=== PATIENT | male | born 1950 | race African-American/Black ===

== ENCOUNTER 2017-04-20 11:11 | Inpatient (IN) | payer MEDICARE, MEDICAID ==
[~2017-04-20] VITALS: Ht 175.3 cm; Wt 62.1 kg
[~2017-04-20 11:11] MED LIST: ACET-3161 PO; CLON0.3T4 PO; LABE300T PO; MINO2.5T19 PO; OMEP40CA PO
[2017-04-20 14:24] LABS: HEMATOCRIT. 23.4 % (42.0-52.0); HEMOGLOBIN. 7.4 g/dL (14.0-18.0); MEAN CORPUSCULAR HEMOGLOBIN 30.7 pg (28.0-32.0); MEAN CORPUSCULAR VOLUME 97.3 fL (80.0-94.0); MEAN PLATELET VOLUME 7.7 fl (7.4-10.4); PLATELET 90 x1000/uL (130-400); RED CELL DISTRIBUTION WIDTH 16.2 % (11.6-14.6)
[2017-04-20 14:39] LABS: CARBON DIOXIDE 27 mEq/L (21-32); CHLORIDE 106 mEq/L (98-107)
[2017-04-20 15:32] LABS: PLATELET ESTIMATE DECREASED
[2017-04-20] MEDS ORDERED: IPRATROPIUM/ALBUTEROL 0.5-3(2.5)MG/3ML NEB INH PRN (16:15)
[2017-04-20] MEDS ORDERED: CLONIDINE 0.1MG TABLET PO PRN (16:15)
[2017-04-20] MEDS ORDERED: ACETAMINOPHEN 325MG TABLET PO PRN (16:15)
[2017-04-20] MEDS ORDERED: ONDANSETRON HCL 4MG/2ML VIAL IV PRN (16:15)
[2017-04-20] MEDS ORDERED: DOCUSATE SODIUM 100MG CAPSULE PO PRN (16:15)
[2017-04-20 20:32] LABS: HEPATITIS B SURFACE AB 102.3 mIU/mL
[2017-04-20 20:43] LABS: HEPATITIS B SURFACE ANTIGEN NEGATIVE
[2017-04-20 21:12] LABS: HEPATITIS B CORE AB IGM NEGATIVE
[2017-04-21] VITALS (9 sets, daily range): BP systolic 134–163; BP diastolic 70–83
[2017-04-21] MEDS ORDERED: VANCOMYCIN 1 G PREMIX 200 ML IV SCH (01:00)
[2017-04-21] MEDS ORDERED: ZOLPIDEM TARTRATE 5MG TABLET PO PRN (01:09)
[2017-04-21] MEDS: LABETALOL HCL 300MG TABLET PO SCH ×3 (01:11→21:00)
[2017-04-21] MEDS ORDERED: IBUP-2030 PO (01:59)
[2017-04-21] MEDS ORDERED: LABE200T28 PO (01:59)
[2017-04-21] MEDS ORDERED: CLON0.2T PO (02:01)
[2017-04-21] MEDS: MINOXIDIL 2.5MG TABLET PO SCH ×3 (02:13→21:00)
[2017-04-21] MEDS: CLONIDINE 0.3MG TABLET PO SCH ×3 (02:13→21:00)
[2017-04-21 07:28] LABS: HEMATOCRIT. 24.2 % (42.0-52.0); HEMOGLOBIN. 7.8 g/dL (14.0-18.0); MEAN CORPUSCULAR HEMOGLOBIN 31.7 pg (28.0-32.0); MEAN PLATELET VOLUME 8.6 fl (7.4-10.4); PLATELET 91 x1000/uL (130-400); RED BLOOD CELL COUNT 2.47 mill/uL (4.7-6.1); RED CELL DISTRIBUTION WIDTH 16.1 % (11.6-14.6)
[2017-04-21 08:00] LABS: PHOSPHORUS 6.6 mg/dL (2.5-4.9)
[2017-04-21] MEDS: OMEPRAZOLE 20MG CAPSULE EXTENDED RELEASE PO SCH (09:10)
[2017-04-21] MEDS: FERROUS SULFATE 325MG TABLET PO SCH ×4 (13:10→18:44)
[2017-04-21] MEDS: AMLODIPINE 5MG TABLET PO SCH ×2 (13:45→21:00)
[2017-04-21] MEDS ORDERED: VANCOMYCIN 500 MG PREMIX 100 ML IV NR (15:00)
[2017-04-21 16:14] LABS: PLATELET ESTIMATE DECREASED
[2017-04-21] MEDS ORDERED: EPOETIN ALFA 10000UNITS/ML VIAL SUBCUT NR (21:00)
[2017-04-21] MEDS: SEVELAMER CARBONATE 800 MG TABLET PO SCH ×2 (21:22→21:28)
[2017-04-22] VITALS: BP 144/80
[2017-04-22 04:00] VITALS: BP 158/78
[2017-04-22 07:17] LABS: HEMATOCRIT. 26.9 % (42.0-52.0); HEMOGLOBIN. 8.9 g/dL (14.0-18.0); MEAN CORPUSCULAR HEMOGLOBIN 31.5 pg (28.0-32.0); MEAN CORPUSCULAR VOLUME 94.9 fL (80.0-94.0); MEAN PLATELET VOLUME 8.7 fl (7.4-10.4); PLATELET 90 x1000/uL (130-400); RED BLOOD CELL COUNT 2.83 mill/uL (4.7-6.1); RED CELL DISTRIBUTION WIDTH 16.7 % (11.6-14.6)
[2017-04-22 08:00] VITALS: BP 144/66
[2017-04-22] MEDS: FERROUS SULFATE 325MG TABLET PO SCH ×2 (08:10→08:28)
[2017-04-22] MEDS: SEVELAMER CARBONATE 800 MG TABLET PO SCH (08:10)
[2017-04-22] MEDS: AMLODIPINE 5MG TABLET PO SCH (08:28)
[2017-04-22] MEDS: MINOXIDIL 2.5MG TABLET PO SCH (08:28)
[2017-04-22] MEDS: LABETALOL HCL 300MG TABLET PO SCH (08:28)
[2017-04-22] MEDS: OMEPRAZOLE 20MG CAPSULE EXTENDED RELEASE PO SCH (08:28)
[2017-04-22] MEDS: CLONIDINE 0.3MG TABLET PO SCH (08:28)
[2017-04-22 14:21] LABS: PLATELET ESTIMATE SLIGHTLY DECREASED
[2017-04-22] MEDS ORDERED: EPOETIN ALFA 10000UNITS/ML VIAL SUBCUT SCH (21:00)
== END 2017-04-22 11:40 | disposition left against medical advice (07) | DRG 194 ==
LOC: ER 12:28 → 7WST 15:45 → SUPCPDRO 15:51 → ENRESERV 18:42 → 7WST 04-21 02:16
PROVIDERS: ADMIT Family Medicine Adult Medicine; ATTEND Family Medicine Adult Medicine
PROC: 5A1D70Z Performance of Urinary Filtration, Intermittent, Less than 6 Hours Per Day (ICD-10-PCS; principal; 2017-04-21)
PROC: 30233N1 Transfusion of Nonautologous Red Blood Cells into Peripheral Vein, Percutaneous Approach (ICD-10-PCS; 2017-04-21)
DX: I13.2 Hypertensive heart and chronic kidney disease with heart failure and with stage 5 chronic kidney disease, or end stage renal disease (principal); J96.00 Acute respiratory failure, unspecified whether with hypoxia or hypercapnia; E44.0 Moderate protein-calorie malnutrition; D61.818 Other pancytopenia; N18.6 End stage renal disease; I27.20 Pulmonary hypertension, unspecified; I12.0 Hypertensive chronic kidney disease with stage 5 chronic kidney disease or end stage renal disease; I50.23 Acute on chronic systolic (congestive) heart failure; E87.70 Fluid overload, unspecified; D63.8 Anemia in other chronic diseases classified elsewhere; Z53.21 Procedure and treatment not carried out due to patient leaving prior to being seen by health care provider; B19.20 Unspecified viral hepatitis C without hepatic coma; Z99.2 Dependence on renal dialysis; Z79.899 Other long term (current) drug therapy
CPT/HCPCS: 36415; 71010; 80048; 80053; 80076; 83540; 83550; 83735; 84100; 84443; 85025; 86705; 86706; 86803; 86850; 86900; 86920; 87340; 93005; 93970; 99285; G0482; J0885; J3370; J7040; P9016

== ENCOUNTER 2018-02-24 09:04 | Emergency (ER) | payer MEDICARE, MEDICAID ==
[~2018-02-24] VITALS: Ht 177.8 cm; Wt 54.0 kg
[~2018-02-24 09:04] MED LIST changes: -ACET-3161 PO; +CLON0.2T PO; -CLON0.3T4 PO; +IBUP-2030 PO; +LABE200T28 PO; -LABE300T PO
[2018-02-24] MEDS ORDERED: LIDOCAINE HCL 4% CREAM 76GM TUBE TP STA ×2 (09:34→09:57)
[2018-02-24] MEDS ORDERED: LIDOCAINE HCL 2% JELLY 5ML TOP ONE (09:45)
[2018-02-24 10:19] LABS: BASOPHILS % 0.4 % (0.0-2.0); EOSINOPHILS % 0.9 % (0.0-5.0); HEMATOCRIT. 27.7 % (42.0-52.0); HEMOGLOBIN. 9.4 g/dL (14.0-18.0); LYMPHOCYTES % 18.1 % (20.0-50.0); MEAN CORPUSCULAR HEMOGLOBIN 36.7 pg (28.0-32.0); MEAN CORPUSCULAR VOLUME 107.8 fL (80.0-94.0); MEAN PLATELET VOLUME 7.9 fl (7.4-10.4); MONOCYTES % 13.1 % (2.0-8.0); NEUTROPHILS % 67.5 % (40.0-76.0); PLATELET 74 x1000/uL (130-400); RED BLOOD CELL COUNT 2.57 mill/uL (4.7-6.1); RED CELL DISTRIBUTION WIDTH 16.3 % (11.6-14.6)
[2018-02-24 10:30] LABS: CHLORIDE 98 mEq/L (98-107)
[2018-02-24 10:35] VITALS: BP 119/57
== END 2018-02-24 10:57 | disposition home or self-care (01) ==
LOC: ER 09:04
DX: K64.4 Residual hemorrhoidal skin tags (principal); I12.0 Hypertensive chronic kidney disease with stage 5 chronic kidney disease or end stage renal disease; N18.6 End stage renal disease; Z99.2 Dependence on renal dialysis
CPT/HCPCS: 36415; 99284

== ENCOUNTER 2018-02-28 18:09 | Inpatient (IN) | payer MEDICARE, MEDICAID ==
[~2018-02-28] VITALS: Ht 348 cm; Wt 55.3 kg
[2018-02-28 21:14] LABS: BASOPHILS % 0.8 % (0.0-2.0); EOSINOPHILS % 1.1 % (0.0-5.0); LYMPHOCYTES % 26.2 % (20.0-50.0); MEAN CORPUSCULAR HEMOGLOBIN 37.7 pg (28.0-32.0); MEAN CORPUSCULAR VOLUME 109.6 fL (80.0-94.0); MEAN PLATELET VOLUME 8.7 fl (7.4-10.4); MONOCYTES % 10.5 % (2.0-8.0); NEUTROPHILS % 61.4 % (40.0-76.0); PLATELET 83 x1000/uL (130-400); RED BLOOD CELL COUNT 2.38 mill/uL (4.7-6.1); RED CELL DISTRIBUTION WIDTH 16.8 % (11.6-14.6)
[2018-02-28 21:23] LABS: INR 1.3; PROTHROMBIN TIME 13.4 sec (9.1-11.1)
[2018-02-28 21:25] LABS: CHLORIDE 98 mEq/L (98-107)
[2018-02-28] MEDS ORDERED: ASPIRIN 325MG EC TABLET PO ONE (22:15)
[2018-03-01] VITALS: BP 138/68
[2018-03-01] MEDS ORDERED: MORPHINE SULFATE 4 MG/ML CPJ (NOT FOR IM USE) IV PRN (01:15)
[2018-03-01] MEDS ORDERED: CLONIDINE 0.2MG TABLET PO PRN (01:15)
[2018-03-01 02:12] VITALS: BP 138/63
[2018-03-01 04:00] VITALS: BP 106/46
[2018-03-01 07:00] LABS: BASOPHILS % 0.6 % (0.0-2.0); EOSINOPHILS % 1.6 % (0.0-5.0); HEMATOCRIT. 24.9 % (42.0-52.0); HEMOGLOBIN. 8.4 g/dL (14.0-18.0); LYMPHOCYTES % 29.2 % (20.0-50.0); MEAN CORPUSCULAR HEMOGLOBIN 37.2 pg (28.0-32.0); MEAN CORPUSCULAR VOLUME 109.8 fL (80.0-94.0); MEAN PLATELET VOLUME 8.7 fl (7.4-10.4); NEUTROPHILS % 55.6 % (40.0-76.0); PLATELET 78 x1000/uL (130-400); RED BLOOD CELL COUNT 2.27 mill/uL (4.7-6.1)
[2018-03-01 08:00] VITALS: BP_SYST 105; BP_SYST 108; BP_SYST 115; BP_DIAS 50; BP_DIAS 61; BP_DIAS 69
[2018-03-01 08:15] LABS: CREATINE KINASE MB FRACTION 1.9 ng/mL (0.5-3.6)
[2018-03-01] MEDS: FOLIC ACID/VITAMIN B COMP W-C TABLET PO SCH (08:51)
[2018-03-01] MEDS: SEVELAMER CARBONATE 800 MG TABLET PO SCH ×3 (08:51→18:40)
[2018-03-01] MEDS ORDERED: MINOXIDIL 2.5MG TABLET PO SCH (09:00)
[2018-03-01 12:00] VITALS: BP 105/40
[2018-03-01] MEDS ORDERED: VANCOMYCIN 1 G PREMIX 200 ML IV NR (14:00)
[2018-03-01] MEDS: PIPERACILLIN/TAZ 2.25G PREMIX 50 ML IV SCH ×2 (15:05→23:33)
[2018-03-01 16:00] VITALS: BP 107/61
[2018-03-01] MEDS: HEMORRHOIDAL SUPP PR SCH (21:00)
[2018-03-01] MEDS ORDERED: EPOETIN ALFA 10000UNITS/ML VIAL SUBCUT SCH (21:00)
[2018-03-01] MEDS ORDERED: VANCOMYCIN 500 MG PREMIX 100 ML IV SCH (22:00)
[2018-03-02 04:00] VITALS: BP 99/44
[2018-03-02] MEDS: PIPERACILLIN/TAZ 2.25G PREMIX 50 ML IV SCH ×3 (05:42→22:00)
[2018-03-02 07:53] LABS: BASOPHILS % 0.7 % (0.0-2.0); EOSINOPHILS % 1.3 % (0.0-5.0); HEMOGLOBIN. 7.6 g/dL (14.0-18.0); LYMPHOCYTES % 24.3 % (20.0-50.0); MEAN CORPUSCULAR HEMOGLOBIN 38.1 pg (28.0-32.0); MEAN CORPUSCULAR VOLUME 110.4 fL (80.0-94.0); MEAN PLATELET VOLUME 8.7 fl (7.4-10.4); MONOCYTES % 13.5 % (2.0-8.0); NEUTROPHILS % 60.2 % (40.0-76.0); PLATELET 79 x1000/uL (130-400); RED BLOOD CELL COUNT 1.99 mill/uL (4.7-6.1); RED CELL DISTRIBUTION WIDTH 16.9 % (11.6-14.6)
[2018-03-02 08:00] VITALS: BP_SYST 115; BP_SYST 126; BP_DIAS 47; BP_DIAS 76
[2018-03-02 08:22] LABS: HIV SCREEN 4G Non Reactive (Non Reactive)
[2018-03-02] MEDS: SEVELAMER CARBONATE 800 MG TABLET PO SCH ×3 (09:25→18:57)
[2018-03-02] MEDS: HEMORRHOIDAL SUPP PR SCH ×2 (09:26→21:00)
[2018-03-02] MEDS: FOLIC ACID/VITAMIN B COMP W-C TABLET PO SCH (09:26)
[2018-03-02 12:00] VITALS: BP 106/50
[2018-03-02 14:01] LABS: PLATELET ESTIMATE DECREASED
[2018-03-02 16:00] VITALS: BP 104/44
[2018-03-02 21:50] VITALS: BP 135/78
== END 2018-03-02 22:25 | disposition home or self-care (01) | DRG 720 ==
LOC: ER 18:09 → EDBEDREQTM 22:44 → EDBEDREQ 22:44 → ENRESERV 22:51 → 7WST 23:31
PROVIDERS: ADMIT Internal Medicine; ATTEND Internal Medicine
PROC: 5A1D70Z Performance of Urinary Filtration, Intermittent, Less than 6 Hours Per Day (ICD-10-PCS; principal; 2018-03-01)
DX: A41.9 Sepsis, unspecified organism (principal); E43 Unspecified severe protein-calorie malnutrition; D61.818 Other pancytopenia; I12.0 Hypertensive chronic kidney disease with stage 5 chronic kidney disease or end stage renal disease; I27.20 Pulmonary hypertension, unspecified; N18.6 End stage renal disease; I08.1 Rheumatic disorders of both mitral and tricuspid valves; R53.1 Weakness; R07.9 Chest pain, unspecified; R06.02 Shortness of breath; D63.8 Anemia in other chronic diseases classified elsewhere; K64.9 Unspecified hemorrhoids; B19.20 Unspecified viral hepatitis C without hepatic coma; Z99.2 Dependence on renal dialysis; Z91.15 Patient's noncompliance with renal dialysis; Z68.1 Body mass index [BMI] 19.9 or less, adult
CPT/HCPCS: 36415; 70551; 71045; 80048; 82550; 82553; 84145; 84484; 87389; 93005; 93306; 97162; 99285; J0885; J2543; J3370; J7050

== ENCOUNTER 2018-09-20 11:38 | Inpatient (IN) | payer MEDICARE, MEDICAID ==
[~2018-09-20] VITALS: Ht 167.6 cm; Wt 62.6 kg
[~2018-09-20 11:38] MED LIST changes: -CLON0.2T PO; -LABE200T28 PO; -MINO2.5T19 PO
[2018-09-20 12:25] LABS: BASOPHILS % 0.6 % (0.0-2.0); EOSINOPHILS % 0.3 % (0.0-5.0); LYMPHOCYTES % 18.2 % (20.0-50.0); MEAN CORPUSCULAR HEMOGLOBIN 39.1 pg (28.0-32.0); MEAN CORPUSCULAR VOLUME 114.7 fL (80.0-94.0); MEAN PLATELET VOLUME 8.9 fl (7.4-10.4); MONOCYTES % 9.5 % (2.0-8.0); NEUTROPHILS % 71.4 % (40.0-76.0); PLATELET 87 x1000/uL (130-400); RED BLOOD CELL COUNT 1.83 mill/uL (4.7-6.1); RED CELL DISTRIBUTION WIDTH 18.2 % (11.6-14.6)
[2018-09-20 12:27] LABS: HEMOGLOBIN. 7.2 g/dL (14.0-18.0)
[2018-09-20 12:28] LABS: CHLORIDE 93 mEq/L (98-107)
[2018-09-20 13:10] LABS: PLATELET ESTIMATE DECREASED
[2018-09-20 13:23] LABS: INR 1.5; PROTHROMBIN TIME 15.2 sec (9.6-11.0)
[2018-09-20] MEDS ORDERED: ACETAMINOPHEN 325MG TABLET PO PRN (13:45)
[2018-09-20] MEDS ORDERED: ONDANSETRON HCL 4MG/2ML INJ IV PRN (13:45)
[2018-09-20 14:22] LABS: TOTAL IRON BINDING CAPACITY 213 ug/dL (250-450)
[2018-09-20] MEDS ORDERED: FAMOTIDINE 20MG/2ML VIAL IV SCH (15:30)
[2018-09-20 16:00] VITALS: BP 112/53
[2018-09-20] MEDS ORDERED: MINO2.5T2 PO (16:47)
[2018-09-20 16:48] VITALS: BP 112/53
[2018-09-20 17:04] LABS: HEPATITIS B SURFACE ANTIGEN NEGATIVE
[2018-09-20 17:34] LABS: HEPATITIS A AB IGM NEGATIVE (NEGATIVE)
[2018-09-20 17:47] VITALS: BP 146/86
[2018-09-20 20:00] VITALS: BP 125/72
[2018-09-20] MEDS: FAMOTIDINE 20MG/2ML VIAL IV SCH ×2 (20:00→21:00)
[2018-09-20] MEDS: EPOETIN ALFA 10000UNITS/ML VIAL SUBCUT SCH ×2 (21:00→21:03)
[2018-09-21] VITALS: BP 120/50
[2018-09-21] MEDS: DILTIAZEM HCL 60MG TABLET PO SCH ×4 (00:58→20:59)
[2018-09-21 06:37] VITALS: BP 109/64
[2018-09-21 07:41] LABS: HEMATOCRIT. 22.4 % (42.0-52.0); HEMOGLOBIN. 7.8 g/dL (14.0-18.0); MEAN CORPUSCULAR HEMOGLOBIN 36.4 pg (28.0-32.0); MEAN CORPUSCULAR VOLUME 104.3 fL (80.0-94.0); PLATELET 67 x1000/uL (130-400); RED BLOOD CELL COUNT 2.15 mill/uL (4.7-6.1); RED CELL DISTRIBUTION WIDTH 25.8 % (11.6-14.6)
[2018-09-21 08:00] VITALS: BP 120/73
[2018-09-21 11:52] LABS: PLATELET ESTIMATE DECREASED
[2018-09-21 20:00] VITALS: BP 125/60
[2018-09-21] MEDS: FAMOTIDINE 20MG/2ML VIAL IV SCH ×2 (20:52→20:57)
[2018-09-22] MEDS: DILTIAZEM HCL 60MG TABLET PO SCH ×2 (05:12→14:00)
[2018-09-22 06:28] LABS: HEMATOCRIT. 24.2 % (42.0-52.0); HEMOGLOBIN. 8.2 g/dL (14.0-18.0); MEAN CORPUSCULAR HEMOGLOBIN 36.1 pg (28.0-32.0); PLATELET 76 x1000/uL (130-400); RED BLOOD CELL COUNT 2.28 mill/uL (4.7-6.1); RED CELL DISTRIBUTION WIDTH 25.7 % (11.6-14.6)
[2018-09-22 07:41] LABS: PLATELET ESTIMATE DECREASED
[2018-09-22 08:00] VITALS: BP 113/66
[2018-09-22 16:00] VITALS: BP 122/62
[2018-09-22 18:13] VITALS: BP 122/62
== END 2018-09-22 19:30 | disposition home or self-care (01) | DRG 253 ==
LOC: ER 11:38 → 8WST 12:46 → EDBEDREQTM 12:48 → EDBEDREQ 12:48 → ENRESERV 14:23
PROVIDERS: ADMIT Internal Medicine; ATTEND Internal Medicine
PROC: 30233N1 Transfusion of Nonautologous Red Blood Cells into Peripheral Vein, Percutaneous Approach (ICD-10-PCS; principal; 2018-09-20)
DX: K92.2 Gastrointestinal hemorrhage, unspecified (principal); E43 Unspecified severe protein-calorie malnutrition; I13.2 Hypertensive heart and chronic kidney disease with heart failure and with stage 5 chronic kidney disease, or end stage renal disease; D61.818 Other pancytopenia; E87.5 Hyperkalemia; E87.8 Other disorders of electrolyte and fluid balance, not elsewhere classified; E87.1 Hypo-osmolality and hyponatremia; I27.20 Pulmonary hypertension, unspecified; N18.6 End stage renal disease; I08.1 Rheumatic disorders of both mitral and tricuspid valves; I48.2 Chronic atrial fibrillation; B19.20 Unspecified viral hepatitis C without hepatic coma; E78.5 Hyperlipidemia, unspecified; I25.10 Atherosclerotic heart disease of native coronary artery without angina pectoris; I42.9 Cardiomyopathy, unspecified; I48.1 Persistent atrial fibrillation; I50.33 Acute on chronic diastolic (congestive) heart failure; I50.9 Heart failure, unspecified; K64.8 Other hemorrhoids; Z68.22 Body mass index [BMI] 22.0-22.9, adult; Z99.2 Dependence on renal dialysis; Z79.899 Other long term (current) drug therapy
CPT/HCPCS: 36415; 71045; 80048; 80076; 82247; 82248; 82270; 82728; 83540; 83550; 83735; 83880; 84484; 86705; 86709; 86803; 86850; 86900; 86920; 87340; 93005; 96374; 96375; 99285; C1893; J0885; J3490; P9016; P9021

== ENCOUNTER 2018-10-01 17:59 | Inpatient (IN) | payer MEDICARE, MEDICAID ==
[~2018-10-01] VITALS: Ht 177.8 cm; Wt 55.8 kg
[~2018-10-01 17:59] MED LIST changes: -IBUP-2030 PO; +MINO2.5T2 PO
[2018-10-01 19:15] LABS: BASOPHILS % 1.2 % (0.0-2.0); EOSINOPHILS % 0.4 % (0.0-5.0); LYMPHOCYTES % 15.9 % (20.0-50.0); MEAN CORPUSCULAR HEMOGLOBIN 36.8 pg (28.0-32.0); MEAN CORPUSCULAR VOLUME 108.6 fL (80.0-94.0); MEAN PLATELET VOLUME 8.9 fl (7.4-10.4); MONOCYTES % 12.6 % (2.0-8.0); NEUTROPHILS % 69.9 % (40.0-76.0); PLATELET 105 x1000/uL (130-400)
[2018-10-01 19:17] LABS: HEMATOCRIT. 19.5 % (42.0-52.0); HEMOGLOBIN. 6.6 g/dL (14.0-18.0)
[2018-10-01 19:21] LABS: CHLORIDE 102 mEq/L (98-107)
[2018-10-01 19:46] LABS: INR 1.4; PARTIAL THROMBOPLASTIN TIME 34.5 sec (23.4-31.0); PROTHROMBIN TIME 14.3 sec (9.6-11.0)
[2018-10-01] MEDS ORDERED: DILTIAZEM HCL 30MG TABLET PO ONE (20:00)
[2018-10-01] MEDS ORDERED: DILTIAZEM HCL 5MG/ML 5ML VIAL IV ONE (20:00)
[2018-10-01] MEDS ORDERED: FAMOTIDINE 20MG/2ML VIAL IV ONE (20:00)
[2018-10-02] VITALS: BP_SYST 119; BP_DIAS 63; BP_DIAS 68
[2018-10-02 04:00] VITALS: BP 102/59
[2018-10-02 08:00] VITALS: BP 102/76
[2018-10-02 11:43] LABS: MEAN CORPUSCULAR HEMOGLOBIN 34.9 pg (28.0-32.0); MEAN PLATELET VOLUME 8.3 fl (7.4-10.4); PLATELET 74 x1000/uL (130-400); RED CELL DISTRIBUTION WIDTH 24.5 % (11.6-14.6)
[2018-10-02 11:54] LABS: HEMATOCRIT. 20.8 % (42.0-52.0)
[2018-10-02 12:00] VITALS: BP 106/65
[2018-10-02 12:13] LABS: PLATELET ESTIMATE DECREASED
[2018-10-02] MEDS: PANTOPRAZOLE 40MG DR TABLET PO SCH ×2 (14:44→21:30)
[2018-10-02] MEDS: FUROSEMIDE 40MG TABLET PO SCH (14:44)
[2018-10-02 16:00] VITALS: BP 96/52
[2018-10-02 20:00] VITALS: BP 124/56
[2018-10-02 21:12] LABS: MEAN CORPUSCULAR HEMOGLOBIN 33.7 pg (28.0-32.0); MEAN CORPUSCULAR VOLUME 104.4 fL (80.0-94.0); MEAN PLATELET VOLUME 8.2 fl (7.4-10.4); PLATELET 67 x1000/uL (130-400); RED BLOOD CELL COUNT 1.84 mill/uL (4.7-6.1); RED CELL DISTRIBUTION WIDTH 24.4 % (11.6-14.6)
[2018-10-02 21:21] LABS: HEMATOCRIT. 19.2 % (42.0-52.0); HEMOGLOBIN. 6.2 g/dL (14.0-18.0)
[2018-10-02] MEDS: DILTIAZEM HCL 60MG TABLET PO SCH (21:30)
[2018-10-02 21:35] LABS: CREATINE KINASE MB FRACTION 3.6 ng/mL (0.5-3.6)
[2018-10-02 22:07] LABS: PLATELET ESTIMATE DECREASED
[2018-10-03] VITALS (11 sets, daily range): BP systolic 93–124; BP diastolic 46–68
[2018-10-03 00:07] LABS: CREATINE KINASE MB FRACTION 3.2 ng/mL (0.5-3.6)
[2018-10-03 00:39] LABS: HEMATOCRIT 18.9 % (42.0-52.0); HEMOGLOBIN 6.4 g/dL (14.0-18.0)
[2018-10-03] MEDS: DILTIAZEM HCL 60MG TABLET PO SCH ×3 (06:00→21:43)
[2018-10-03] MEDS: PANTOPRAZOLE 40MG DR TABLET PO SCH ×2 (06:26→21:00)
[2018-10-03 06:32] LABS: INR 1.5; PROTHROMBIN TIME 14.8 sec (9.6-11.0)
[2018-10-03 06:41] LABS: BASOPHILS % 0.6 % (0.0-2.0); EOSINOPHILS % 0.9 % (0.0-5.0); HEMATOCRIT. 24.9 % (42.0-52.0); HEMOGLOBIN. 8.5 g/dL (14.0-18.0); LYMPHOCYTES % 22.9 % (20.0-50.0); MEAN CORPUSCULAR HEMOGLOBIN 34.6 pg (28.0-32.0); MEAN PLATELET VOLUME 8.7 fl (7.4-10.4); MONOCYTES % 11.7 % (2.0-8.0); NEUTROPHILS % 63.9 % (40.0-76.0); PLATELET 78 x1000/uL (130-400); RED BLOOD CELL COUNT 2.47 mill/uL (4.7-6.1)
[2018-10-03 07:27] LABS: PHOSPHORUS 5.6 mg/dL (2.5-4.9)
[2018-10-03] MEDS ORDERED: HYDROCODONE/ACETAMINOPHEN 5/325MG TABLET PO PRN (07:30)
[2018-10-03] MEDS ORDERED: ONDANSETRON HCL 4MG/2ML INJ IV PRN (07:30)
[2018-10-03] MEDS ORDERED: LORAZEPAM 2MG/ML CPJ IV PRN (07:30)
[2018-10-03] MEDS ORDERED: IPRATROPIUM/ALBUTEROL 0.5-3(2.5)MG/3ML NEB INH PRN (07:30)
[2018-10-03] MEDS ORDERED: ACETAMINOPHEN 325MG TABLET PO PRN (07:30)
[2018-10-03] MEDS ORDERED: CEFTRIAXONE 1 G PREMIX 50 ML IV SCH (09:00)
[2018-10-03] MEDS: FUROSEMIDE 40MG TABLET PO SCH (09:25)
[2018-10-03 12:43] LABS: HEMOGLOBIN 8.1 g/dL (14.0-18.0)
[2018-10-04] MEDS ORDERED: EPOETIN ALFA 10000UNITS/ML VIAL SUBCUT SCH (21:00)
== END 2018-10-04 00:35 | disposition left against medical advice (07) | DRG 254 ==
LOC: ER 17:59 → 8WST 21:46 → EDBEDREQ 21:49 → EDBEDREQTM 21:49 → ENRESERV 22:21
PROVIDERS: ADMIT Internal Medicine; ATTEND Internal Medicine
PROC: 30233N1 Transfusion of Nonautologous Red Blood Cells into Peripheral Vein, Percutaneous Approach (ICD-10-PCS; principal; 2018-10-01)
PROC: 5A1D70Z Performance of Urinary Filtration, Intermittent, Less than 6 Hours Per Day (ICD-10-PCS; 2018-10-04)
DX: K92.1 Melena (principal); E43 Unspecified severe protein-calorie malnutrition; I13.2 Hypertensive heart and chronic kidney disease with heart failure and with stage 5 chronic kidney disease, or end stage renal disease; D61.818 Other pancytopenia; D68.9 Coagulation defect, unspecified; E87.5 Hyperkalemia; E46 Unspecified protein-calorie malnutrition; I08.1 Rheumatic disorders of both mitral and tricuspid valves; I27.20 Pulmonary hypertension, unspecified; I48.2 Chronic atrial fibrillation; N18.6 End stage renal disease; B18.2 Chronic viral hepatitis C; D72.821 Monocytosis (symptomatic); I45.10 Unspecified right bundle-branch block; I50.33 Acute on chronic diastolic (congestive) heart failure; Z86.19 Personal history of other infectious and parasitic diseases; Z99.2 Dependence on renal dialysis; Z79.899 Other long term (current) drug therapy; Z68.1 Body mass index [BMI] 19.9 or less, adult
CPT/HCPCS: 36415; 71045; 80048; 80061; 82270; 82550; 82553; 82728; 83540; 83550; 83735; 83880; 84100; 84134; 84145; 84443; 84484; 85014; 85018; 85044; 86850; 86900; 86920; 93005; 93970; 96374; 96375; 99291; J0696; J3490; J7040; J7050; P9016; P9021